=== PATIENT | female | born 1995 | race Caucasian/White ===

== ENCOUNTER 2018-10-02 10:23 | Emergency (ER) | payer OTHER ==
[~2018-10-02] VITALS: Ht 162.6 cm; Wt 68.0 kg
[~2018-10-02 10:23] MED LIST: BACTRIM DS TAB1 EACH PO; UNKNOWN ANTIBIOTIC; VICODIN 5-5001 EACH
[2018-10-02 10:35] VITALS: BP 132/77
[2018-10-02] MEDS ORDERED: KEFLEX500 M1 PO (10:49)
[2018-10-02] MEDS ORDERED: CIPROFLOXIN HC2.5 M1 OTIC (10:49)
== END 2018-10-02 11:03 | disposition home or self-care (01) ==
LOC: M.ERS 10:23
DX: H10.89 Other conjunctivitis (principal); B96.89 Other specified bacterial agents as the cause of diseases classified elsewhere; I10 Essential (primary) hypertension; F17.200 Nicotine dependence, unspecified, uncomplicated